=== PATIENT | female | born 1985 | race Caucasian/White ===

== ENCOUNTER 2022-10-13 21:27 | Emergency (ER) | payer OTHER ==
[2022-10-13 21:32] VITALS: BP 120/82; PULSE 92; RESP 16; TEMP 97.6; BMI 29.9
[2022-10-13] MEDS ORDERED: DIPHTH,PERTUSS(ACELL),TET 0.5 ML DISP.SYRIN IM ONE ×2 (23:11→23:13)
== END 2022-10-13 23:25 | disposition home or self-care (01) ==
LOC: JERFT 21:27
PROC: 0HQFXZZ Repair Right Hand Skin, External Approach (ICD-10-PCS; principal; 2022-10-13)
PROC: 3E0234Z Introduction of Serum, Toxoid and Vaccine into Muscle, Percutaneous Approach (ICD-10-PCS; 2022-10-13)
DX: S61.214A Laceration without foreign body of right ring finger without damage to nail, initial encounter (principal); W26.8XXA Contact with other sharp object(s), not elsewhere classified, initial encounter
CPT/HCPCS: 12001-25; 90471; 90715; 99282-25

== ENCOUNTER 2022-10-22 18:44 | Emergency (ER) | payer OTHER ==
[2022-10-22 18:53] VITALS: BP 108/68; PULSE 63; RESP 16; TEMP 98.4; BMI 28.3
[2022-10-22] MEDS ORDERED: LIDOCAINE 2.5%/PRILOCAINE 2.5% (5 Gram/TUBE) TP ONE (21:25)
== END 2022-10-22 21:48 | disposition home or self-care (01) ==
LOC: JERFT 18:44 → JER 18:44 → JERFT 21:48
DX: Z48.02 Encounter for removal of sutures (principal)
CPT/HCPCS: 99281-25